=== PATIENT | female | born 1995 | race Two or more races ===

== ENCOUNTER 2018-01-15 13:34 | Inpatient (IN) | payer OTHER ==
[2018-01-15] MEDS ORDERED: SODIUM CHLORIDE 1,000 ML IV STA ×2 (14:48→16:14)
[2018-01-15] MEDS ORDERED: ONDANSETRON 4 MG/2 ML VIAL ONE (15:16)
[2018-01-15] MEDS: ONDANSETRON 4 MG/2 ML VIAL IVPUSH ONE ×2 (15:19→15:28)
[2018-01-15] MEDS ORDERED: KETOROLAC TROMETHAMINE 30 MG/1 ML VIAL IVPUSH ONE ×2 (15:26→20:50)
[2018-01-15] MEDS ORDERED: KETOROLAC TROMETHAMINE 30 MG/1 ML VIAL ONE ×2 (15:29→21:11)
[2018-01-15 15:30] LABS: BASO % 0.4 % (0-2.0); EOS % 0.1 % (0-4.5); HEMATOCRIT 38.9 % (32.4-45.2); HEMOGLOBIN 13.5 GM/dL (10.7-15.3); LYMPH % 10.8 % (8-40); MCH 34.7 pg (25.7-33.7); MCHC 34.7 g/dl (32.0-36.0); MEAN PLT VOLUME 9.3 fl (7.5-11.1); MONO % 5.1 % (3.8-10.2); NEUT % 83.6 % (42.8-82.8); PLATELET COUNT 205 K/MM3 (134-434); RBC 3.89 M/mm3 (3.60-5.2); RDW 12.3 % (11.6-15.6); WHITE BLOOD COUNT 21.6 K/mm3 (4.0-10.0)
--- NOTE | 2018-01-15 15:34 | PDOC ---
History of Present Illness - General Chief Complaint: Pain, Acute Stated Complaint: SENT BY PCP Time Seen by Provider: 01/15/18 14:47 History Source: Patient Exam Limitations: No Limitations - History of Present Illness Travel History: No Initial Comments: 01/15/18 15:29 22-year-old female with no past medical history presents to ED for evaluation of sudden onset of right upper quadrant and right periumbilical pain associated with nausea and vomiting which continued today. Patient denies fever, chills recent travel, recent illness, GI history irregular menses, urinary complaints, or recent constipation. Timing/Duration: reports: getting worse Quality: reports: moderate, cramping Abdominal Pain Onset Location: reports: RUQ, periumbilical (right) Pain Radiation: denies: no radiation Activities at Onset: denies: none Aggravating Factors: worse with: None Alleviating Factors: worse with: None Past History - Past Medical History Allergies/Adverse Reactions: Allergies Allergy/AdvReac Type Severity Reaction Status Date / Time No Known Allergies Allergy Verified 01/15/18 13:59 Home Medications: Ambulatory Orders NK [No Known Home Medication] 01/15/18 Asthma: Yes Cardiac Disorders: Yes (MURMUR) COPD: No - Suicide/Smoking/Psychosocial Hx Smoking History: Never smoked Patient Lives Alone: No Lives with/in: parents Review of Systems - Review of Systems Able to Perform ROS?: No Constitutional: No: Symptoms Reported HEENTM: No: Symptoms Reported Respiratory: No: Symptoms reported Cardiac (ROS): No: Symptoms Reported ABD/GI: Yes: Nausea, Vomiting, Abdominal cramping : No: Symptoms Reported Musculoskeletal: No: Symptoms Reported Integumentary: No: Symptoms Reported Neurological: No: Symptoms reported *Physical Exam - Vital Signs Last Vital Signs Temp Pulse Resp BP Pulse Ox 99.1 F 101 H 17 102/54 100 01/15/18 13:59 01/15/18 13:59 01/15/18 13:59 01/15/18 13:59 01/15/18 13:59 - Physical Exam General Appearance: Yes: Nourished, Appropriately Dressed. No: Apparent Distress HEENT: positive: Pharynx Normal. negative: Pale Conjunctivae Neck: positive: Supple Respiratory/Chest: positive: Lungs Clear, Normal Breath Sounds. negative: Respiratory Distress, Accessory Muscle Use Cardiovascular: positive: Regular Rhythm, Tachycardia. negative: Murmur Gastrointestinal/Abdominal: positive: Soft, Tenderness (right upper quadrant, Right periumbilical and mild right lower quadrant. + right flank tenderness. Mild rebound. No distention) Musculoskeletal: negative: CVA Tenderness Integumentary: positive: Normal Color, Warm, Moist Neurologic: positive: Motor Strength /5 (ambulatory) ED Treatment Course - LABORATORY CBC & Chemistry Diagram: 01/15/18 15:20 01/15/18 15:20 - Medications Given in the ED: ED Medications Discontinued Medications Generic Name Dose Route Start Last Admin Trade Name Yoq PRN Reason Stop Dose Admin Ondansetron HCl 4 mg 01/15/18 14:48 01/15/18 15:28 Zofran Injection IVPUSH 01/15/18 14:49 Not Given ONCE ONE Medical Decision Making - Medical Decision Making 01/15/18 15:05 Pt with sudden onset of right upper abdominal and right periumbilical pain last night which progressed to nausea and vomiting since this a.m. Patient referred to urgent care clinic for evaluation. Facial exam had right upper quadrant and right periumbilical mild right lower quadrant pain. Patient also with a temperature of 99.1 along with a heart rate of 101. Patient ordered for labs, antiemetics, IV fluids and analgesics. Patient may require CT versus ultrasound and will wait for further lab results. 01/15/18 16:18 Laboratory Tests 01/15/18 01/15/18 01/15/18 15:20 15:20 15:20 WBC 21.6 H Hgb 13.5 Hct 38.9 MCV 100.0 H MCH 34.7 H Plt Count 205 Neutrophils % 83.6 H Neutrophils % (Manual) Pending Sodium 137 Potassium 4.2 Chloride 102 Carbon Dioxide 27 Anion Gap 8 BUN 13 Creatinine 0.9 Random Glucose 101 Calcium 9.2 Magnesium 2.0 AST 19 ALT 24 Urine Protein 2+ H Urine Blood 1+ H Urine Nitrite Negative Ur Leukocyte Esterase 2+ H Urine WBC (Auto) Pending Urine RBC (Auto) Pending Urine HCG, Qual Negative Blood cultures, lactic acid, second IV along with IV fluids and abdominal CT. Coags and type and screen were also added. 01/15/18 17:13 Laboratory Tests 01/15/18 15:20 Urine WBC (Auto) 26 Urine RBC (Auto) 5 01/15/18 17:44 Laboratory Tests 01/15/18 01/15/18 15:20 16:50 Lactic Acid 1.3 Ur Leukocyte Esterase 2+ H Urine WBC (Auto) 26 Urine RBC (Auto) 5 Case discussed with radiologist Dr. Perez and feels this is not appendicitis and noted a large cystic structure in the right adnexa. Patient also with UTI. Patient be given a dose of ceftriaxone and reassess. 01/15/18 18:50 Selected Entries 01/15/18 17:49 Temperature 99.9 F H Pulse Rate [ 93 H Left] Respiratory 18 Rate Blood Pressure 114/75 [Right Arm] O2 Sat by Pulse 100 Oximetry (%)
[2018-01-15 15:41] LABS: URINE APPEARANCE CLEAR; URINE BILIRUBIN NEGATIVE (<2.0 mg/dL); URINE COLOR LTYELLOW; URINE GLUCOSE (UA) NEGATIVE (NEGATIVE); URINE KETONE NEGATIVE (NEGATIVE); URINE NITRITE NEGATIVE (NEGATIVE); URINE UROBILINOGEN NEGATIVE mg/dL (0.2-1.0)
[2018-01-15 15:42] LABS: URINE LEUK ESTERASE 2+ (NEGATIVE); URINE PROTEIN 2+ (NEGATIVE)
[2018-01-15 15:48] LABS: HCG,QUALITATIVE URINE NEGATIVE
[2018-01-15 15:49] LABS: ALBUMIN 4.1 g/dl (3.4-5.0); ALK PHOS 48 U/L (45-117); ANION GAP 8 (8-16); BILIRUBIN,TOTAL 0.8 mg/dL (0.2-1.0); BLOOD UREA NITROGEN 13 mg/dL (7-18); CALCIUM 9.2 mg/dL (8.5-10.1); CHLORIDE 102 mmol/L (98-107); CO2 27 mmol/L (21-32); CREATININE 0.9 mg/dL (0.55-1.02); GLUCOSE,RANDOM 101 mg/dL (74-106); LIPASE 111 U/L (73-393); POTASSIUM 4.2 mmol/L (3.5-5.1); SGPT/ALT 24 U/L (12-78); SODIUM 137 mmol/L (136-145)
[2018-01-15 15:50] LABS: SGOT/AST 19 U/L (15-37)
[2018-01-15 16:22] LABS: EPI CELLS RARE /HPF (FEW); URINE MUCUS RARE
--- NOTE | 2018-01-15 16:48 | PDOC ---
*Physical Exam - Vital Signs Last Vital Signs Temp Pulse Resp BP Pulse Ox 99.1 F 101 H 17 102/54 100 01/15/18 13:59 01/15/18 13:59 01/15/18 13:59 01/15/18 13:59 01/15/18 13:59 ED Treatment Course - LABORATORY CBC & Chemistry Diagram: 01/15/18 15:20 01/15/18 15:20 - ADDITIONAL ORDERS Additional order review: Laboratory Results 01/15/18 01/15/18 15:20 15:20 Sodium 137 Potassium 4.2 Chloride 102 Carbon Dioxide 27 Anion Gap 8 BUN 13 Creatinine 0.9 Creat Clearance w eGFR > 60 Random Glucose 101 Calcium 9.2 Magnesium 2.0 Total Bilirubin 0.8 AST 19 ALT 24 Alkaline Phosphatase 48 Total Protein 8.0 Albumin 4.1 Lipase 111 Urine Color Ltyellow Urine Appearance Clear Urine pH 8.0 Ur Specific [place] 1.015 Urine Protein 2+ H Urine Glucose (UA) Negative Urine Ketones Negative Urine Blood 1+ H Urine Nitrite Negative Urine Bilirubin Negative Urine Urobilinogen Negative Ur Leukocyte Esterase 2+ H Urine WBC (Auto) 26 Urine RBC (Auto) 5 Ur Epithelial Cells Rare Urine Mucus Rare Urine HCG, Qual Negative 01/15/18 15:20 RBC 3.89 MCV 100.0 H MCHC 34.7 RDW 12.3 MPV 9.3 Neutrophils % 83.6 H Lymphocytes % 10.8 Monocytes % 5.1 Eosinophils % 0.1 Basophils % 0.4 - Medications Given in the ED: ED Medications Discontinued Medications Generic Name Dose Route Start Last Admin Trade Name Freq PRN Reason Stop Dose Admin Sodium Chloride 1,000 mls @ 1,000 mls/hr 01/15/18 14:48 01/15/18 15:18 Normal Saline - IV 01/15/18 15:47 1,000 mls/hr ASDIR STA Administration Ketorolac Tromethamine 30 mg 01/15/18 15:26 01/15/18 15:30 Toradol Injection - IVPUSH 01/15/18 15:27 30 mg ONCE ONE Administration Ondansetron HCl 4 mg 01/15/18 14:48 01/15/18 15:28 Zofran Injection IVPUSH 01/15/18 14:49 Not Given ONCE ONE Medical Decision Making - Medical Decision Making 01/15/18 16:45 Seen with ELIAZAR King: 22y/o F with acute onset epigastric/periumbilical pain with n/v. Tenderness in the upper abdomen, ? biliary v. pancreatitis v. focal infectious process such as appy. labs notable for leukocytosis 21.6 normal LFT and lipase UA with elevated WBC ctap pending, r/o appy *DC/Admit/Observation/Transfer Diagnosis at time of Disposition: Upper abdominal pain - Referrals - Patient Instructions - Post Discharge Activity
[2018-01-15 17:56] LABS: INR 1.37 (0.83-1.09)
[2018-01-15 18:12] LABS: PROTHROMBIN TIME (PATIENT) 15.5 SEC (9.7-13.0)
[2018-01-15 18:25] LABS: MACROCYTOSIS 1+; PLATELET ESTIMATE ADEQUATE
[2018-01-15] MEDS ORDERED: CEFTRIAXONE 1 GM in DEXTROSE 5%-WATER - 50 ML IVPB ONE (18:50)
[2018-01-15] MEDS ORDERED: CEFTRIAXONE 1 GM/50 ML BAG ONE (19:08)
--- NOTE | 2018-01-15 19:17 | PDOC ---
*Physical Exam - Vital Signs Last Vital Signs Temp Pulse Resp BP Pulse Ox 99.9 F H 93 H 18 114/75 100 01/15/18 17:49 01/15/18 17:49 01/15/18 17:49 01/15/18 17:49 01/15/18 17:49 - Physical Exam General Appearance: Yes: Appropriately Dressed Female Pelvic Exam: positive: normal external exam, CMT (right + CMT), discharge (yellow discharge) ED Treatment Course - LABORATORY CBC & Chemistry Diagram: 01/15/18 20:20 01/15/18 15:20 - ADDITIONAL ORDERS Additional order review: Laboratory Results 01/15/18 01/15/18 01/15/18 16:50 16:50 16:50 PT with INR 15.50 H* INR 1.37 Sodium Potassium Chloride Carbon Dioxide Anion Gap BUN Creatinine Creat Clearance w eGFR Random Glucose Lactic Acid 1.3 Calcium Magnesium Total Bilirubin AST ALT Alkaline Phosphatase Total Protein Albumin Lipase Urine Color Urine Appearance Urine pH Ur Specific [place] Urine Protein Urine Glucose (UA) Urine Ketones Urine Blood Urine Nitrite Urine Bilirubin Urine Urobilinogen Ur Leukocyte Esterase Urine WBC (Auto) Urine RBC (Auto) Ur Epithelial Cells Urine Mucus Urine HCG, Qual Blood Type A POSITIVE Antibody Screen Negative 01/15/18 01/15/18 15:20 15:20 PT with INR INR Sodium 137 Potassium 4.2 Chloride 102 Carbon Dioxide 27 Anion Gap 8 BUN 13 Creatinine 0.9 Creat Clearance w eGFR > 60 Random Glucose 101 Lactic Acid Calcium 9.2 Magnesium 2.0 Total Bilirubin 0.8 AST 19 ALT 24 Alkaline Phosphatase 48 Total Protein 8.0 Albumin 4.1 Lipase 111 Urine Color Ltyellow Urine Appearance Clear Urine pH 8.0 Ur Specific [place] 1.015 Urine Protein 2+ H Urine Glucose (UA) Negative Urine Ketones Negative Urine Blood 1+ H Urine Nitrite Negative Urine Bilirubin Negative Urine Urobilinogen Negative Ur Leukocyte Esterase 2+ H Urine WBC (Auto) 26 Urine RBC (Auto) 5 Ur Epithelial Cells Rare Urine Mucus Rare Urine HCG, Qual Negative Blood Type Antibody Screen 01/15/18 15:20 RBC 3.89 MCV 100.0 H MCHC 34.7 RDW 12.3 MPV 9.3 Neutrophils % 83.6 H Lymphocytes % 10.8 Monocytes % 5.1 Eosinophils % 0.1 Basophils % 0.4 - Medications Given in the ED: ED Medications Discontinued Medications Generic Name Dose Route Start Last Admin Trade Name Quintin PRN Reason Stop Dose Admin Sodium Chloride 1,000 mls @ 1,000 mls/hr 01/15/18 14:48 01/15/18 15:18 Normal Saline - IV 01/15/18 15:47 1,000 mls/hr ASDIR STA Administration Sodium Chloride 1,000 mls @ 1,000 mls/hr 01/15/18 16:14 01/15/18 17:18 Normal Saline - IV 01/15/18 17:13 1,000 mls/hr ASDIR STA Administration Ketorolac Tromethamine 30 mg 01/15/18 15:26 01/15/18 15:30 Toradol Injection - IVPUSH 01/15/18 15:27 30 mg ONCE ONE Administration Ondansetron HCl 4 mg 01/15/18 14:48 01/15/18 15:28 Zofran Injection IVPUSH 01/15/18 14:49 Not Given ONCE ONE Medical Decision Making - Medical Decision Making 01/15/18 21:53 GC chlamydia endocervical specimen sent. Spoke to Dr. Colin patient to be admitted for PID considering leukocytosis, pelvic pain and right TOA on ultrasound. patient to be admitted under hospitalist service. patient PCP and [facility] COORDINATOR are in [place]. *DC/Admit/Observation/Transfer Diagnosis at time of Disposition: Tubo-ovarian abscess, PID (acute pelvic inflammatory disease) - Discharge Dispostion Decision to Admit order: Yes - Referrals - Patient Instructions - Post Discharge Activity
[2018-01-15 20:44] LABS: BASO % 0.1 % (0-2.0); EOS % 0.1 % (0-4.5); HEMATOCRIT 35.5 % (32.4-45.2); HEMOGLOBIN 12.1 GM/dL (10.7-15.3); MCH 34.2 pg (25.7-33.7); MEAN CELL VOLUME 100.6 fl (80-96); MEAN PLT VOLUME 8.9 fl (7.5-11.1); MONO % 5.7 % (3.8-10.2); NEUT % 85.1 % (42.8-82.8); PLATELET COUNT 182 K/MM3 (134-434); RBC 3.53 M/mm3 (3.60-5.2); RDW 12.3 % (11.6-15.6); WHITE BLOOD COUNT 19.7 K/mm3 (4.0-10.0)
[2018-01-15] MEDS ORDERED: ceFAZolin 2 GRAM PREMIX BAG IVPB ONE (21:15)
[2018-01-15] MEDS ORDERED: CEFAZOLIN 2 GM/D5W 2 GM/50 ML ML IVPB ONE (21:15)
--- NOTE | 2018-01-15 23:27 | PN ---
Teaching Attending Note Name of Resident: Corona Salas ATTENDING PHYSICIAN STATEMENT I saw and evaluated the patient. I reviewed the resident's note and discussed the case with the resident. I agree with the resident's findings and plan as documented. SUBJECTIVE: Patient is a 22 year old woman with no past medical history presents to ER for evaluation of sudden onset of right upper quadrant and right periumbilical pain associated with nausea and vomiting which continued today. She has had RLQ abdominal pain several times in the past and was told that she has a complex ovarian cyst. Sexually active with one partner and has a 3 year old child. She has a history of asthma in childhood, genital herpes, and her LMP was December 28 2017. Patient denies fever, chills recent travel, recent illness, irregular menses, urinary complaints, or recent constipation. OBJECTIVE: Alert and in no distress Vital Signs Period Temp Pulse Resp BP Sys/[place] Pulse Ox Last 24 Hr 99.1 F-99.9 F 93-101 17-18 102-114/54-75 100-100 HEENT: No Jaundice, eye redness or discharge, PERRLA, EOMI. Normocephalic, atraumatic. External ears are normal and hearing is grossly intact. No nasal discharge. Neck: Supple, nontender. No palpable adenopathy or thyromegaly. No JVD Chest: Good effort. Clear to auscultation and percussion. Heart: Regular. No S3, rub or murmur Abdomen: Not distended, soft, RLQ and periumblical tenderness; no HSM. No rebound or guarding. Normoactive bowel sounds. Ext: Peripheral pulses intact. No leg edema. Skin: Warm and dry. No petechiae, rash or ecchymosis. Neuro: Alert. Oriented x3. CN 2-12 grossly intact. Sensation grossly intact in all four extremities and DTR are symmetric. Home Medications Medication Instructions Recorded NK [No Known Home Medication] 01/15/18 Abnormal Lab Results 01/15/18 01/15/18 01/15/18 15:20 15:20 16:50 WBC 21.6 H RBC MCV 100.0 H MCH 34.7 H Neutrophils % 83.6 H Monocytes % (Manual) 3 L PT with INR 15.50 H* Urine Protein 2+ H Urine Blood 1+ H Ur Leukocyte Esterase 2+ H 01/15/18 20:20 WBC 19.7 H RBC 3.53 L MCV 100.6 H MCH 34.2 H Neutrophils % 85.1 H Monocytes % (Manual) PT with INR Urine Protein Urine Blood Ur Leukocyte Esterase ASSESSMENT AND PLAN: 1. PID/TOA - CT scan as well as transvaginal ultrasound showed right hydrosalphinx and she has pyuria as well as leukocytosis. Will treat as pelvic inflammatory disease with Cefoxitin 2 gm IV q 6 hours and Doxycycline 100 mg po q 12 hours. Results of urine culture and tests for chlamydia, Neisseria gonorrhoea and trichomonas are pending. Consult [employer]ILY [employer]ERVATION CASEWORKER and ID. 2. DVT prophylaxis - Heparin 5000u sq tid. 3. Advance directives - Full code
[2018-01-15] MEDS ORDERED: ONDANSETRON 4 MG/2 ML VIAL IVPUSH PRN (23:55)
[2018-01-15] MEDS ORDERED: KETOROLAC TROMETHAMINE 30 MG/1 ML VIAL IVPUSH PRN (23:59)
--- NOTE | 2018-01-16 02:23 | HP ---
CHIEF COMPLAINT: abdominal pain PCP: HISTORY OF PRESENT ILLNESS: 22 yo female with no significant PMH presented to the ED with one day of Abdominal pain in the RUQ and Right periumbilical region. During this time she endorses chills, nausea, and 3 episodes of nonbloody, nonbilious vomiting. She states that she went to urgent care who recommended she come to the ED for possible cholecystitis. Since then, the pain has migrated to RLQ and suprapubic regions. She states that she is sexually active with one partner and that they use barrier protection consistently. She denies headache, chest pain, SOB, dysuria, hematuria, abnormal vaginal discharge. ER course was notable for: (1) CT and U/S revealing 4.4 x 4 x 4 fluid filled convoluted tubular structure consistent with hydrosalpinx vs. hydropyosalpinx (2) WBC: 19.7, afebrile (3) Ancef, Flagyl given for presumed PID Recent Travel: none PAST MEDICAL HISTORY: Childhood asthma - has not required inhaler in many years PAST SURGICAL HISTORY: 4 years ago - blood loss required transfusion Social History: Smoking: none Alcohol: none Drugs: none Sexual: as above Family History: Allergies No Known Allergies Allergy (Verified 01/15/18 13:59) HOME MEDICATIONS: Home Medications Medication Instructions Recorded NK [No Known Home Medication] 01/15/18 REVIEW OF SYSTEMS CONSTITUTIONAL: chills, Absent: fever, diaphoresis, generalized weakness, malaise, loss of appetite, weight change HEENT: Absent: rhinorrhea, nasal congestion, throat pain, throat swelling, difficulty swallowing, mouth swelling, ear pain, eye pain, visual changes CARDIOVASCULAR: Absent: chest pain, syncope, palpitations, irregular heart rate, lightheadedness , peripheral edema RESPIRATORY: Absent: cough, shortness of breath, dyspnea with exertion, orthopnea, wheezing, stridor, hemoptysis GASTROINTESTINAL: abdominal pain, nausea, vomiting Absent: , abdominal distension, diarrhea, constipation, melena, hematochezia GENITOURINARY: frequency, Absent: dysuria, urgency, hesitancy, hematuria, flank pain, genital pain MUSCULOSKELETAL: Absent: myalgia, arthralgia, joint swelling, back pain, neck pain SKIN: Absent: rash, itching, pallor HEMATOLOGIC/IMMUNOLOGIC: Absent: easy bleeding, easy bruising, lymphadenopathy, frequent infections ENDOCRINE: Absent: unexplained weight gain, unexplained weight loss, heat intolerance, cold intolerance NEUROLOGIC: Absent: headache, focal weakness or paresthesias, dizziness, unsteady gait, seizure, mental status changes, bladder or bowel incontinence PSYCHIATRIC: Absent: anxiety, depression, suicidal or homicidal ideation, hallucinations. PHYSICAL EXAMINATION Vital Signs - 24 hr 01/15/18 01/15/18 01/16/18 13:59 17:49 01:37 Temperature 99.1 F 99.9 F H 98.8 F Pulse Rate 101 H Pulse Rate [ 93 H 119 H Left] Respiratory 17 18 17 Rate Blood Pressure 102/54 Blood Pressure 114/75 106/59 [Right Arm] O2 Sat by Pulse 100 100 99 Oximetry (%) GENERAL: Awake, alert, and fully oriented, in no acute distress. HEAD: Normal with no signs of trauma. EYES: PERRL, EOMI, scera anicteric EARS, NOSE, THROAT: oropharynx clear without exudates. Moist mucous membranes. NECK: supple without lymphadenopathy, JVD, or masses. LUNGS: CTA b/l, no rhonchi or wheezes HEART: RRR no murmurs ABDOMEN: normoactive bowel sounds, tenderness to palpation worst in RLQ and suprapubic region UPPER EXTREMITIES: warm, well-perfused. No cyanosis. No clubbing. No peripheral edema. LOWER EXTREMITIES: warm, well-perfused. No calf tenderness. No peripheral edema. NEUROLOGICAL: Cranial nerves II-XII grossly intact. Normal speech. PSYCHIATRIC: Cooperative. Good eye contact. Appropriate mood and affect. SKIN: Warm, dry, normal turgor, no rashes or lesions noted Laboratory Results - last 24 hr 01/15/18 01/15/18 01/15/18 15:20 15:20 15:20 WBC 21.6 H RBC 3.89 Hgb 13.5 Hct 38.9 MCV 100.0 H MCH 34.7 H MCHC 34.7 RDW 12.3 Plt Count 205 MPV 9.3 Absolute Neuts (auto) 18.1 Total Counted 100 Neutrophils % 83.6 H Neutrophils % (Manual) 79.0 Band Neutrophils % 9.0 Lymphocytes % 10.8 Lymphocytes % (Manual) 9.0 Monocytes % 5.1 Monocytes % (Manual) 3 L Eosinophils % 0.1 Basophils % 0.4 Nucleated RBC % 0 Differential Comment Man diff performed Platelet Estimate Adequate Platelet Comment Polychromasia 1+ Macrocytosis 1+ PT with INR INR Sodium 137 Potassium 4.2 Chloride 102 Carbon Dioxide 27 Anion Gap 8 BUN 13 Creatinine 0.9 Creat Clearance w eGFR > 60 Random Glucose 101 Lactic Acid Calcium 9.2 Magnesium 2.0 Total Bilirubin 0.8 AST 19 ALT 24 Alkaline Phosphatase 48 Total Protein 8.0 Albumin 4.1 Lipase 111 Urine Color Ltyellow Urine Appearance Clear Urine pH 8.0 Ur Specific [place] 1.015 Urine Protein 2+ H Urine Glucose (UA) Negative Urine Ketones Negative Urine Blood 1+ H Urine Nitrite Negative Urine Bilirubin Negative Urine Urobilinogen Negative Ur Leukocyte Esterase 2+ H Urine WBC (Auto) 26 Urine RBC (Auto) 5 Ur Epithelial Cells Rare Urine Mucus Rare Urine HCG, Qual Negative Blood Type Antibody Screen 01/15/18 01/15/18 01/15/18 16:50 16:50 16:50 WBC RBC Hgb Hct MCV MCH MCHC RDW Plt Count MPV Absolute Neuts (auto) Total Counted Neutrophils % Neutrophils % (Manual) Band Neutrophils % Lymphocytes % Lymphocytes % (Manual) Monocytes % Monocytes % (Manual) Eosinophils % Basophils % Nucleated RBC % Differential Comment Platelet Estimate Platelet Comment Polychromasia Macrocytosis PT with INR 15.50 H* INR 1.37 Sodium Potassium Chloride Carbon Dioxide Anion Gap BUN Creatinine Creat Clearance w eGFR Random Glucose Lactic Acid 1.3 Calcium Magnesium Total Bilirubin AST ALT Alkaline Phosphatase Total Protein Albumin Lipase Urine Color Urine Appearance Urine pH Ur Specific [place] Urine Protein Urine Glucose (UA) Urine Ketones Urine Blood Urine Nitrite Urine Bilirubin Urine Urobilinogen Ur Leukocyte Esterase Urine WBC (Auto) Urine RBC (Auto) Ur Epithelial Cells Urine Mucus Urine HCG, Qual Blood Type A POSITIVE Antibody Screen Negative 01/15/18 20:20 WBC 19.7 H RBC 3.53 L Hgb 12.1 Hct 35.5 MCV 100.6 H MCH 34.2 H MCHC 34.0 RDW 12.3 Plt Count 182 MPV 8.9 Absolute Neuts (auto) 16.8 Total Counted Neutrophils % 85.1 H Neutrophils % (Manual) Band Neutrophils % Lymphocytes % 9.0 Lymphocytes % (Manual) Monocytes % 5.7 Monocytes % (Manual) Eosinophils % 0.1 Basophils % 0.1 Nucleated RBC % 0 Differential Comment Platelet Estimate Platelet Comment Polychromasia Macrocytosis PT with INR INR Sodium Potassium Chloride Carbon Dioxide Anion Gap BUN Creatinine Creat Clearance w eGFR Random Glucose Lactic Acid Calcium Magnesium Total Bilirubin AST ALT Alkaline Phosphatase Total Protein Albumin Lipase Urine Color Urine Appearance Urine pH Ur Specific [place] Urine Protein Urine Glucose (UA) Urine Ketones Urine Blood Urine Nitrite Urine Bilirubin Urine Urobilinogen Ur Leukocyte Esterase Urine WBC (Auto) Urine RBC (Auto) Ur Epithelial Cells Urine Mucus Urine HCG, Qual Blood Type Antibody Screen ASSESSMENT/PLAN: 22 yo female with no significant PMH admitted for treatment of acute vs. chronic pelvic inflammatory dz, more likely acute PID -more likely acute PID -WBC 19.7, afebrile -CT and U/S fluid filled convoluted tubular structure in R adnexa -G/C swab collected -Urine and Blood c/s -ID consult ordered -PIG STICKER consult ordered -Cefoxitin 2 gm IV Q6 -Doxy 100 mg PO Q12 DVT Prophylaxis -SCD's FEN -Fluids: none -Electrolytes: as above, repeat BMP, Mg, Phos -Nutrition: Regular diet Disposition admit to med/surg Visit type - Emergency Visit Emergency Visit: Yes ED Registration Date: 01/15/18 Care time: The patient presented to the Emergency Department on the above date and was hospitalized for further evaluation of their emergent condition. - New Patient This patient is new to me today: Yes Date on this admission: 01/16/18 - Critical Care Critical Care patient: No Hospitalist Screening - Colonoscopy Questionnaire Colonoscopy Questionnaire: Colonoscopy Questionnaire - Patient: 50 - 75 years old and never had a screening colonoscopy: No History of colon or rectal polyps, or CA: No History of IBD, Crohn's disease or UC: No History of abdominal radiation therapy as a child: No - Relative: 1 with colon or rectal CA, or polyps at age 60 or younger: No Colon or rectal CA diagnosed at age 45 or younger: No Multiple relatives with colon or rectal CA: No - Outcome: Screening Result: Negative Screen
[2018-01-16] MEDS: CEFOXITIN SODIUM 2 GM in DEXTROSE 5%-WATER - 100 ML IVPB SCH ×4 (03:14→21:25)
[2018-01-16 03:28] VITALS: BMI 23.1
[2018-01-16] MEDS ORDERED: PT OWN MED DRAWER 7, Y5N ONE ×3 (03:42→21:11)
[2018-01-16] MEDS: ACETAMINOPHEN 325 MG TABLET (FP) PO PRN (05:45)
[2018-01-16] MEDS ORDERED: HEPARIN NA (PORCINE) 5,000 UNITS/ML 1ML VIAL SQ SCH (06:00)
[2018-01-16 06:37] LABS: HEMATOCRIT 31.4 % (32.4-45.2); MCH 35.4 pg (25.7-33.7); MEAN CELL VOLUME 101.3 fl (80-96); PLATELET COUNT 152 K/MM3 (134-434); RDW 12.3 % (11.6-15.6); WHITE BLOOD COUNT 17.3 K/mm3 (4.0-10.0)
[2018-01-16 07:15] LABS: ANION GAP 5 (8-16); BLOOD UREA NITROGEN 7 mg/dL (7-18); CALCIUM 7.8 mg/dL (8.5-10.1); CHLORIDE 107 mmol/L (98-107); CO2 25 mmol/L (21-32); CREATININE 0.9 mg/dL (0.55-1.02); GLUCOSE,RANDOM 104 mg/dL (74-106); MAGNESIUM 1.6 mg/dL (1.8-2.4); PHOSPHOROUS 1.8 mg/dL (2.5-4.9); POTASSIUM 3.8 mmol/L (3.5-5.1); SODIUM 137 mmol/L (136-145)
--- NOTE | 2018-01-16 09:36 | PN ---
Physical Exam: SUBJECTIVE: Patient seen and examined at the bedside. Reports mild discomfort of her RUQ. OBJECTIVE: electrolyte imbalance Vital Signs Period Temp Pulse Resp BP Sys/Chavarria Pulse Ox Last 24 Hr 98.5 F-102.9 F 93-119 16-18 102-118/54-75 99-100 Neuro: awake, alert and oriented x 3 Abdomen: Not distended, soft, RLQ and periumblical tenderness persists. No rebound, +bowel sounds. Upper ext: no edema equal strength Lower ext: no edema, equal strength Laboratory Results - last 24 hr 01/15/18 01/15/18 01/15/18 15:20 15:20 15:20 WBC 21.6 H RBC 3.89 Hgb 13.5 Hct 38.9 MCV 100.0 H MCH 34.7 H MCHC 34.7 RDW 12.3 Plt Count 205 MPV 9.3 Absolute Neuts (auto) 18.1 Total Counted 100 Neutrophils % 83.6 H Neutrophils % (Manual) 79.0 Band Neutrophils % 9.0 Lymphocytes % 10.8 Lymphocytes % (Manual) 9.0 Monocytes % 5.1 Monocytes % (Manual) 3 L Eosinophils % 0.1 Basophils % 0.4 Nucleated RBC % 0 Differential Comment Man diff performed Platelet Estimate Adequate Platelet Comment Polychromasia 1+ Macrocytosis 1+ PT with INR INR Sodium 137 Potassium 4.2 Chloride 102 Carbon Dioxide 27 Anion Gap 8 BUN 13 Creatinine 0.9 Creat Clearance w eGFR > 60 Random Glucose 101 Lactic Acid Calcium 9.2 Phosphorus Magnesium 2.0 Total Bilirubin 0.8 AST 19 ALT 24 Alkaline Phosphatase 48 Total Protein 8.0 Albumin 4.1 Lipase 111 Urine Color Ltyellow Urine Appearance Clear Urine pH 8.0 Ur Specific [place] 1.015 Urine Protein 2+ H Urine Glucose (UA) Negative Urine Ketones Negative Urine Blood 1+ H Urine Nitrite Negative Urine Bilirubin Negative Urine Urobilinogen Negative Ur Leukocyte Esterase 2+ H Urine WBC (Auto) 26 Urine RBC (Auto) 5 Ur Epithelial Cells Rare Urine Mucus Rare Urine HCG, Qual Negative Blood Type Antibody Screen 01/15/18 01/15/18 01/15/18 16:50 16:50 16:50 WBC RBC Hgb Hct MCV MCH MCHC RDW Plt Count MPV Absolute Neuts (auto) Total Counted Neutrophils % Neutrophils % (Manual) Band Neutrophils % Lymphocytes % Lymphocytes % (Manual) Monocytes % Monocytes % (Manual) Eosinophils % Basophils % Nucleated RBC % Differential Comment Platelet Estimate Platelet Comment Polychromasia Macrocytosis PT with INR 15.50 H* INR 1.37 Sodium Potassium Chloride Carbon Dioxide Anion Gap BUN Creatinine Creat Clearance w eGFR Random Glucose Lactic Acid 1.3 Calcium Phosphorus Magnesium Total Bilirubin AST ALT Alkaline Phosphatase Total Protein Albumin Lipase Urine Color Urine Appearance Urine pH Ur Specific [place] Urine Protein Urine Glucose (UA) Urine Ketones Urine Blood Urine Nitrite Urine Bilirubin Urine Urobilinogen Ur Leukocyte Esterase Urine WBC (Auto) Urine RBC (Auto) Ur Epithelial Cells Urine Mucus Urine HCG, Qual Blood Type A POSITIVE Antibody Screen Negative 01/15/18 01/16/18 01/16/18 20:20 06:00 06:00 WBC 19.7 H 17.3 H RBC 3.53 L 3.10 L Hgb 12.1 11.0 Hct 35.5 31.4 L MCV 100.6 H 101.3 H MCH 34.2 H 35.4 H MCHC 34.0 35.0 RDW 12.3 12.3 Plt Count 182 152 MPV 8.9 9.0 Absolute Neuts (auto) 16.8 Total Counted Neutrophils % 85.1 H Neutrophils % (Manual) Band Neutrophils % Lymphocytes % 9.0 Lymphocytes % (Manual) Monocytes % 5.7 Monocytes % (Manual) Eosinophils % 0.1 Basophils % 0.1 Nucleated RBC % 0 Differential Comment Platelet Estimate Platelet Comment Polychromasia Macrocytosis PT with INR INR Sodium 137 Potassium 3.8 Chloride 107 Carbon Dioxide 25 Anion Gap 5 L BUN 7 Creatinine 0.9 Creat Clearance w eGFR > 60 Random Glucose 104 Lactic Acid Calcium 7.8 L Phosphorus 1.8 L Magnesium 1.6 L Total Bilirubin AST ALT Alkaline Phosphatase Total Protein Albumin Lipase Urine Color Urine Appearance Urine pH Ur Specific [place] Urine Protein Urine Glucose (UA) Urine Ketones Urine Blood Urine Nitrite Urine Bilirubin Urine Urobilinogen Ur Leukocyte Esterase Urine WBC (Auto) Urine RBC (Auto) Ur Epithelial Cells Urine Mucus Urine HCG, Qual Blood Type Antibody Screen Active Medications Generic Name Dose Route Start Last Admin Trade Name Freq PRN Reason Stop Dose Admin Acetaminophen 325 mg 01/16/18 05:38 01/16/18 05:45 Tylenol - PO 325 mg Q4H PRN Administration FEVER Doxycycline Hyclate 100 mg 01/16/18 10:00 Vibramycin - PO BID@1000,1800 STEVEN Cefoxitin Sodium 2 gm/ 100 mls @ 200 mls/hr 01/16/18 15:00 Dextrose IVPB Q6H-IV STEVEN Protocol Ketorolac Tromethamine 30 mg 01/15/18 23:59 Toradol Injection - IVPUSH 01/21/18 23:58 Q6H PRN PAIN LEVEL 6-10 Ondansetron HCl 4 mg 01/15/18 23:55 Zofran Injection IVPUSH Q6H PRN NAUSEA ASSESSMENT/PLAN: Patient is a 22 year old female with past medical history of childhood asthma, genital herpes and (has 1 child, a 3 yr old daughter). She present to the ED on 01/15/2018 for evaluation of acute onset of right upper quadrant and right periumbilical pain/discomfort with nausea and vomiting. Her last menses began on December 28/2018 and she reports that her menses are normal. A CT scan of the abdomen and pelvis done in the ED shows normal appendix with no signs of appendicitis. An approximately 4.4x4x4 cm convoluted tubular fluid structure seen within the right adnexa that may represent hydrosalpinx versus possible hydrophyosalpinx vs non specific complex cyst. She meets sepsis criteria on admission and antibiotics were initiated. Sepsis: Meets sepsis criteria: leukocytosis, tachycardia, febrile, suspected source of infection but with no evidence of organ dysfunction Present with RUQ pain, CT shows a 4.4x4x4 cm convoluted tubular fluid structure seen within the right adnexa that may reprsent hydrosalpinx versus possible hydrophyosalpinx vs non specific complex cyst. Started on Doxycycline and Cefoxitin. Gonorrhea and Chlamydia panels pending. ID and CASE MANAGEMENT COORDINATOR consulted. Electrolyte Imbalance: Hypomagnesium @ 1.6, repleted with Mag ox 800mg po Hypophos @ 1.8: repleted with phos yvonne BID fen PO intake adequate monitor electrolytes regular diet prophy SCDs ambulation bacid probiotic full code Visit type - Emergency Visit Emergency Visit: Yes ED Registration Date: 01/15/18 Care time: The patient presented to the Emergency Department on the above date and was hospitalized for further evaluation of their emergent condition. - New Patient This patient is new to me today: Yes Date on this admission: 01/16/18 - Critical Care Critical Care patient: No - Discharge Referral Referred to [facility] Med [facility] No
[2018-01-16] MEDS: DOXYCYCLINE HYCLATE 100 MG CAPSULE PO SCH ×2 (10:33→17:48)
--- NOTE | 2018-01-16 12:06 | PN ---
Progress Note (short form) - Note Progress Note: ID consult imp/reccd sexually active 22 year old female with 2 day history of right sided abdominal pain fever/leukocytosis ct scan with probable hydropyosalpinx hiv negative one year ago HSV no other stds no anal intercourse sexually active one partner intermittent condom use no recent antibiotics TOA continue cefoxitin/doxycycline f/u cultures hiv testing- patient agrees chlamydia/gonorrhea NAAT pending d/w gyne Problem List - Problems (1) Tubo-ovarian abscess Code(s): N70.93 - SALPINGITIS AND OOPHORITIS, UNSPECIFIED
--- NOTE | 2018-01-16 13:01 | CONS ---
DATE OF CONSULTATION: DATE OF DICTATION: 01/16/2018 REQUESTED BY: Hospitalist service. This is a 22-year-old female with no significant past medical history. She, on the night of January 14, developed right-sided upper quadrant and periumbilical pain that was very severe. She was unable to sleep. She saw went to the urgent center and was sent to the emergency room for further evaluation. She had vomiting x3 in the ER. She denied headache. She denied vaginal discharge, dysuria, or hematuria. She had a workup in the ER notable for a white count of 19.7. CAT scan and ultrasound showed possible hydro-pyosalpinx and she was admitted. She was started on cefoxitin and doxycycline. I am asked to see her for further evaluation. Past medical history is notable for childhood asthma, surgical history for a section 4 years ago. She has a history of genital HSV. She denies Chlamydia or gonorrhea infections in the past. She has had a normal Pap smear. Family history is unremarkable. She has no known drug allergies. She takes no medications. SOCIAL HISTORY: She lives in the community. She has a 3-year-old child. There is no history of alcohol, tobacco, or cigarette use. She is sexually active, she has 1 partner. There is no anal intercourse, and she intermittently uses condoms. Her last menstrual period was December 28. She currently reports she has had some fevers or chills this morning. T-max was 102.9. She has had a bowel movement. She denies any dysuria. PHYSICAL EXAMINATION: General: She is awake and alert. Vital Signs: T-max is 102.9. Most recent temperature is 101.6 with a heart rate of 106. Blood pressure 107/68. Respiratory rate is 18. HEENT: She is normocephalic. Eyes are anicteric. Neck: Supple. Lungs: Clear to auscultation. Heart: Regular rate and rhythm. Abdomen: Soft. She has some right-sided lower quadrant pain radiating to her right upper quadrant. Extremities: Without edema. White count on admission was 21.6, this morning is 17.3, hemoglobin of 11, platelets are 152, INR is 1.3. BUN 7, creatinine 0.9. LFTs are normal. Urinalysis has 2+ leukocytes. Chlamydia and gonorrhea tests are pending. CAT scan and transvaginal sonogram confirm the right-sided hydrosalpinx versus hydro-pyosalpinx. In summary, this is a 22-year-old woman with probable tubo-ovarian abscess. I would continue the cefoxitin and doxycycline, follow up cultures. HIV testing, which she agrees to. She was tested 1 year ago and was negative at that time. Chlamydia and gonorrhea labs are pending. Case was discussed with Gynecology. All questions were answered and discussed at length with the patient. NURY KOLB M.D. [id number]
[2018-01-16] MEDS ORDERED: MAGNESIUM OXIDE 400 MG TABLET (FP) PO ONE (14:30)
[2018-01-16] MEDS: FOLIC ACID 1 MG TABLET (FP) PO SCH (15:51)
[2018-01-16] MEDS: NAPH,MB-DB/K PH,MBDB POWDER PACKET PO SCH ×2 (15:51→21:25)
[2018-01-16] MEDS: LACTOBACILLUS ACIDOPHILUS 1 TABLET PO SCH (15:51)
[2018-01-17] MEDS ORDERED: PT OWN MED DRAWER 7, Y5N ONE ×4 (02:30→18:55)
[2018-01-17] MEDS: CEFOXITIN SODIUM 2 GM in DEXTROSE 5%-WATER - 100 ML IVPB SCH ×4 (02:46→21:50)
[2018-01-17] MEDS ORDERED: INSULIN (NOVOLOG) ASPART 100 UNITS/ML 10ML VIAL ONE ×2 (06:45→18:54)
[2018-01-17 07:27] LABS: BASO % 0.2 % (0-2.0); EOS % 1.3 % (0-4.5); HEMATOCRIT 31.5 % (32.4-45.2); HEMOGLOBIN 10.9 GM/dL (10.7-15.3); LYMPH % 17.7 % (8-40); MCH 34.9 pg (25.7-33.7); MCHC 34.5 g/dl (32.0-36.0); MEAN CELL VOLUME 101.1 fl (80-96); MEAN PLT VOLUME 8.8 fl (7.5-11.1); MONO % 6.5 % (3.8-10.2); NEUT % 74.3 % (42.8-82.8); PLATELET COUNT 167 K/MM3 (134-434); RBC 3.12 M/mm3 (3.60-5.2); RDW 12.7 % (11.6-15.6)
[2018-01-17 08:29] LABS: ALBUMIN 3.1 g/dl (3.4-5.0); ANION GAP 9 (8-16); BILIRUBIN,TOTAL 0.6 mg/dL (0.2-1.0); BLOOD UREA NITROGEN 9 mg/dL (7-18); CALCIUM 8.1 mg/dL (8.5-10.1); CHLORIDE 108 mmol/L (98-107); CO2 23 mmol/L (21-32); CREATININE 0.8 mg/dL (0.55-1.02); GLUCOSE,RANDOM 84 mg/dL (74-106); MAGNESIUM 2.1 mg/dL (1.8-2.4); POTASSIUM 4.3 mmol/L (3.5-5.1); SGOT/AST 10 U/L (15-37); SGPT/ALT 14 U/L (12-78); SODIUM 140 mmol/L (136-145); TOT PROT 6.3 g/dl (6.4-8.2)
[2018-01-17 08:30] LABS: ALK PHOS 44 U/L (45-117)
[2018-01-17] MEDS: FOLIC ACID 1 MG TABLET (FP) PO SCH (09:28)
[2018-01-17] MEDS: NAPH,MB-DB/K PH,MBDB POWDER PACKET PO SCH ×2 (09:28→21:50)
[2018-01-17] MEDS: DOXYCYCLINE HYCLATE 100 MG CAPSULE PO SCH ×2 (09:28→18:31)
[2018-01-17] MEDS: LACTOBACILLUS ACIDOPHILUS 1 TABLET PO SCH (09:28)
--- NOTE | 2018-01-17 10:03 | CONS ---
DATE OF CONSULTATION: 01/16/2018 REASON FOR CONSULTATION: Pelvic pain and fever. HISTORY OF PRESENT ILLNESS: This patient is a 22-year-old, 1, para 1 who presented to ED complaining of 2 days of abdominal pain, which started in periumbilical and then localized to the pelvic area and then radiated to the right upper quadrant area with chills and nausea and had one episode of vomiting. Patient, in the ER, was febrile and had a CT scan, which showed 4.4 x 4 cm fluid-filled tubal structure, which was consistent with hydrosalpinx versus pyosalpinx. White count on admission was 19.7. PAST MEDICAL HISTORY: Significant for section 4 years ago, which she required a blood transfusion. No prior history of sexually transmitted infection. No history of PID. This patient is sexually active, monogamous relationship, and non-spoken. No history of HIV or drug abuse. PHYSICAL EXAMINATION: General: Patient was seen at the bedside. Abdomen: Soft, no distention. Bilateral lower abdominal tenderness and guarding. No rebound. Pelvic: Examination was deferred at this time because the patient was uncomfortable and pelvic examination was done at the ER, which was consistent with PID. IMPRESSION: Tuboovarian abscess, pelvic inflammatory disease. PLAN: Patient is presently on IV antibiotics. I advised IV antibiotics for 72 hours and reevaluate. If the fever continues or the white count does not reduce, and the patient is symptomatic, possible transcutaneous abscess drainage was advised. I will follow up the patient with you. Thank you for the consultation. / DD: DT:
[2018-01-17 11:38] LABS: URINE APPEARANCE CLEAR; URINE BILIRUBIN NEGATIVE (<2.0 mg/dL); URINE COLOR STRAW; URINE GLUCOSE (UA) NEGATIVE (NEGATIVE); URINE KETONE NEGATIVE (NEGATIVE); URINE LEUK ESTERASE NEGATIVE (NEGATIVE); URINE NITRITE NEGATIVE (NEGATIVE); URINE PROTEIN NEGATIVE (NEGATIVE); URINE UROBILINOGEN NEGATIVE mg/dL (0.2-1.0)
[2018-01-17 12:14] LABS: EPI CELLS RARE /HPF (FEW)
--- NOTE | 2018-01-17 12:14 | PN ---
Physical Exam: SUBJECTIVE: Patient seen and examined OBJECTIVE: Reports mild discomfort of her RUQ. Vital Signs Period Temp Pulse Resp BP Sys/Chavarria Pulse Ox Last 24 Hr 98.7 F-100.8 F 95-110 -18 101-119/57-72 99 Neuro: awake, alert and oriented x 3 Abdomen: Not distended, soft, RLQ and periumblical tenderness persists. No rebound, +bowel sounds. Upper ext: no edema equal strength Lower ext: no edema, equal strength Laboratory Results - last 24 hr 01/17/18 01/17/18 01/17/18 06:00 06:00 06:00 WBC 13.0 H RBC 3.12 L Hgb 10.9 Hct 31.5 L MCV 101.1 H MCH 34.9 H MCHC 34.5 RDW 12.7 Plt Count 167 MPV 8.8 Absolute Neuts (auto) 9.7 Neutrophils % 74.3 Lymphocytes % 17.7 D Monocytes % 6.5 Eosinophils % 1.3 D Basophils % 0.2 Nucleated RBC % 0 Sodium 140 Potassium 4.3 Chloride 108 H Carbon Dioxide 23 Anion Gap 9 BUN 9 Creatinine 0.8 Creat Clearance w eGFR > 60 Random Glucose 84 Calcium 8.1 L Magnesium 2.1 Total Bilirubin 0.6 AST 10 L ALT 14 Alkaline Phosphatase 44 L Total Protein 6.3 L Albumin 3.1 L Urine Color Urine Appearance Urine pH Ur Specific [place] Urine Protein Urine Glucose (UA) Urine Ketones Urine Blood Urine Nitrite Urine Bilirubin Urine Urobilinogen Ur Leukocyte Esterase Urine WBC (Auto) Urine RBC (Auto) Ur Epithelial Cells HIV 1&2 Antibody Screen Negative HIV P24 Antigen Negative 01/17/18 11:00 WBC RBC Hgb Hct MCV MCH MCHC RDW Plt Count MPV Absolute Neuts (auto) Neutrophils % Lymphocytes % Monocytes % Eosinophils % Basophils % Nucleated RBC % Sodium Potassium Chloride Carbon Dioxide Anion Gap BUN Creatinine Creat Clearance w eGFR Random Glucose Calcium Magnesium Total Bilirubin AST ALT Alkaline Phosphatase Total Protein Albumin Urine Color Straw Urine Appearance Clear Urine pH 7.0 Ur Specific [place] 1.012 Urine Protein Negative Urine Glucose (UA) Negative Urine Ketones Negative Urine Blood 1+ H Urine Nitrite Negative Urine Bilirubin Negative Urine Urobilinogen Negative Ur Leukocyte Esterase Negative Urine WBC (Auto) <1 Urine RBC (Auto) 1 Ur Epithelial Cells Rare HIV 1&2 Antibody Screen HIV P24 Antigen Active Medications Generic Name Dose Route Start Last Admin Trade Name Freq PRN Reason Stop Dose Admin Acetaminophen 325 mg 01/16/18 05:38 01/16/18 05:45 Tylenol - PO 325 mg Q4H PRN Administration FEVER Doxycycline Hyclate 100 mg 01/16/18 10:00 01/17/18 09:28 Vibramycin - PO 100 mg BID@1000,1800 STEVEN Administration Folic Acid 1 mg 01/16/18 14:30 01/17/18 09:28 Folic Acid - PO 1 mg DAILY STEVEN Administration Cefoxitin Sodium 2 gm/ 100 mls @ 200 mls/hr 01/16/18 15:00 01/17/18 08:27 Dextrose IVPB 200 mls/hr Q6H-IV STEVEN Administration Protocol Ketorolac Tromethamine 30 mg 01/15/18 23:59 Toradol Injection - IVPUSH 01/21/18 23:58 Q6H PRN PAIN LEVEL 6-10 Lactobacillus Acidophilus 1 tab 01/16/18 14:30 01/17/18 09:28 Bacid - PO 1 tab DAILY STEVEN Administration Ondansetron HCl 4 mg 01/15/18 23:55 Zofran Injection IVPUSH Q6H PRN NAUSEA Potassium Phos/Sodium Phos 1 packet 01/16/18 14:30 01/17/18 09:28 Phos-Nak Packet - PO 1 packet BID STEVEN Administration ASSESSMENT/PLAN: Patient is a 22 year old female with past medical history of childhood asthma, genital herpes and (has 1 child, a 3 yr old daughter). She present to the ED on 01/15/2018 for evaluation of acute onset of right upper quadrant and right periumbilical pain/discomfort with nausea and vomiting. Her last menses began on December 28/2018 and she reports that her menses are normal. A CT scan of the abdomen and pelvis done in the ED shows normal appendix with no signs of appendicitis. An approximately 4.4x4x4 cm convoluted tubular fluid structure seen within the right adnexa that may represent hydrosalpinx versus possible hydrophyosalpinx vs non specific complex cyst. She meets sepsis criteria on admission and antibiotics were initiated. Sepsis: sepsis, resolving Present with RUQ pain, CT shows a 4.4x4x4 cm convoluted tubular fluid structure seen within the right adnexa that may reprsent hydrosalpinx versus possible hydrophyosalpinx vs non specific complex cyst. Started on Doxycycline and Cefoxitin. Gonorrhea and Chlamydia panels pending. ID and BRINE WELL OPERATOR consulted. Electrolyte Imbalance: Hypomagnesium, resolved Hypophos: repleted with phos yvonne BID fen PO intake adequate monitor electrolytes regular diet prophy SCDs ambulation bacid probiotic full code Visit type - Emergency Visit Emergency Visit: Yes ED Registration Date: 01/15/18 Care time: The patient presented to the Emergency Department on the above date and was hospitalized for further evaluation of their emergent condition. - New Patient This patient is new to me today: No - Critical Care Critical Care patient: No - Discharge Referral Referred to [facility] Med P.C.: No
[2018-01-17] MEDS: ACETAMINOPHEN 325 MG TABLET (FP) PO PRN ×2 (12:50→21:54)
--- NOTE | 2018-01-17 15:32 | EKG ---
Test Reason : Blood Pressure : / mmHG Vent. Rate : 092 BPM Atrial Rate : 092 BPM P-R Int : 166 ms QRS Dur : 076 ms QT Int : 332 ms P-R-T Axes : 061 042 030 degrees QTc Int : 410 ms NORMAL SINUS RHYTHM NONSPECIFIC T WAVE ABNORMALITY ABNORMAL ECG NO PREVIOUS ECGS AVAILABLE Confirmed by JOY DENNIS, VALERIA ([id number]) on 01/17/2018 3:32:38 PM Referred By: [facility]ENDRA GIRON [facility] Confirmed By:VALERIA HAMILTON MD
--- NOTE | 2018-01-17 16:07 | PN ---
Progress Note (short form) - Note Progress Note: clinically improved less abdominal pain no fever today Vital Signs Period Temp Pulse Resp BP Sys/Chavarria Pulse Ox Last 24 Hr 98.7 F-100.8 F 95-110 18-18 101-119/57-72 99 cor-rrr lungs clear abd soft,RLQ pain to palpation ext no edema CBC, BMP 01/17/18 06:00 01/17/18 06:00 Microbiology 01/15/18 18:27 Urine - Urine Clean Catch Urine Culture - Final NO GROWTH OBTAINED 01/15/18 16:50 Blood - Peripheral Venous Blood Culture - Preliminary NO GROWTH OBTAINED AFTER 24 HOURS, INCUBATION TO CONTINUE FOR 4 DAYS. a/p TOA continue cefoxitin/doxycycline f/u cultures hiv testing- patient agrees chlamydia/gonorrhea NAAT pending gyne f/u Problem List - Problems (1) Tubo-ovarian abscess Code(s): N70.93 - SALPINGITIS AND OOPHORITIS, UNSPECIFIED
[2018-01-17] MEDS: MICONAZOLE NITRATE 2% VAGINAL CREAM 45 GM TUBE VG SCH (21:51)
--- NOTE | 2018-01-17 22:25 | PN ---
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 cx clean uterus and adenexa tender impression TOA , feeling better on antibiotics , does no appear toxic , wbc decreased , temp coming down plan cont iv antibiotics , tii afebrile for 48 hours and normal WBC , repeat TVS in 2 weeks
[2018-01-18] MEDS ORDERED: PT OWN MED DRAWER 7, Y5N ONE ×3 (00:52→21:19)
[2018-01-18] MEDS: CEFOXITIN SODIUM 2 GM in DEXTROSE 5%-WATER - 100 ML IVPB SCH ×4 (03:06→21:31)
[2018-01-18] MEDS ORDERED: MAG HYDROX/AL HYDROX/SIMETH 30 ML UNIT-DOSE CUP PO ONE (04:56)
[2018-01-18 07:14] LABS: BASO % 0.2 % (0-2.0); EOS % 2.2 % (0-4.5); HEMATOCRIT 33.6 % (32.4-45.2); HEMOGLOBIN 11.7 GM/dL (10.7-15.3); LYMPH % 15.7 % (8-40); MCH 35.1 pg (25.7-33.7); MCHC 34.8 g/dl (32.0-36.0); MEAN CELL VOLUME 100.8 fl (80-96); MEAN PLT VOLUME 8.7 fl (7.5-11.1); NEUT % 74.9 % (42.8-82.8); PLATELET COUNT 202 K/MM3 (134-434); RBC 3.33 M/mm3 (3.60-5.2); RDW 12.6 % (11.6-15.6); WHITE BLOOD COUNT 11.5 K/mm3 (4.0-10.0)
[2018-01-18 07:54] LABS: CHLORIDE 103 mmol/L (98-107); POTASSIUM 4.7 mmol/L (3.5-5.1); SODIUM 136 mmol/L (136-145)
[2018-01-18 08:04] LABS: ALBUMIN 3.3 g/dl (3.4-5.0); ALK PHOS 47 U/L (45-117); ANION GAP 7 (8-16); BILIRUBIN,TOTAL 0.5 mg/dL (0.2-1.0); BLOOD UREA NITROGEN 9 mg/dL (7-18); CALCIUM 8.7 mg/dL (8.5-10.1); CO2 26 mmol/L (21-32); CREATININE 0.8 mg/dL (0.55-1.02); GLUCOSE,RANDOM 93 mg/dL (74-106); MAGNESIUM 2.1 mg/dL (1.8-2.4); SGOT/AST 17 U/L (15-37); SGPT/ALT 23 U/L (12-78)
[2018-01-18] MEDS: DOXYCYCLINE HYCLATE 100 MG CAPSULE PO SCH ×2 (09:33→17:46)
[2018-01-18] MEDS: NAPH,MB-DB/K PH,MBDB POWDER PACKET PO SCH (09:33)
[2018-01-18] MEDS: FOLIC ACID 1 MG TABLET (FP) PO SCH (09:35)
[2018-01-18] MEDS: LACTOBACILLUS ACIDOPHILUS 1 TABLET PO SCH (09:36)
--- NOTE | 2018-01-18 12:09 | PN ---
Physical Exam: SUBJECTIVE: Patient seen and examined. Denies fever, chills. Has intermittent RUQ tenderness, feels a "popping" OBJECTIVE: Vital Signs Period Temp Pulse Resp BP Sys/Chavarria Pulse Ox Last 24 Hr 98.6 F-99.6 F 87-97 0-20 98-119/55-73 100 Pe Neuro: alert, awake, cn 2-12intact Pulm: CTAB CV: s1 s2 rrr no mrg Abd: s nt nd + bs : clearing, white vaginal discharge, no odor, no swelling, no clumping no tenderness Ext: no le edema Laboratory Results - last 24 hr 01/17/18 01/18/18 01/18/18 11:00 06:00 06:00 WBC 11.5 H RBC 3.33 L Hgb 11.7 Hct 33.6 MCV 100.8 H MCH 35.1 H MCHC 34.8 RDW 12.6 Plt Count 202 D MPV 8.7 Absolute Neuts (auto) 8.6 Neutrophils % 74.9 Lymphocytes % 15.7 Monocytes % 7.0 Eosinophils % 2.2 Basophils % 0.2 Nucleated RBC % 0 Sodium 136 Potassium 4.7 Chloride 103 Carbon Dioxide 26 Anion Gap 7 L BUN 9 Creatinine 0.8 Creat Clearance w eGFR > 60 Random Glucose 93 Calcium 8.7 Magnesium 2.1 Total Bilirubin 0.5 AST 17 ALT 23 Alkaline Phosphatase 47 Total Protein 7.0 Albumin 3.3 L Urine WBC (Auto) <1 Urine RBC (Auto) 1 Ur Epithelial Cells Rare Active Medications Generic Name Dose Route Start Last Admin Trade Name Yoq PRN Reason Stop Dose Admin Acetaminophen 325 mg 01/16/18 05:38 01/17/18 21:54 Tylenol - PO 325 mg Q4H PRN Administration FEVER Doxycycline Hyclate 100 mg 01/16/18 10:00 01/18/18 09:33 Vibramycin - PO 100 mg BID@1000,1800 STEVEN Administration Folic Acid 1 mg 01/16/18 14:30 01/18/18 09:35 Folic Acid - PO 1 mg DAILY STEVEN Administration Cefoxitin Sodium 2 gm/ 100 mls @ 200 mls/hr 01/16/18 15:00 01/18/18 09:33 Dextrose IVPB 200 mls/hr Q6H-IV STEVEN Administration Protocol Ketorolac Tromethamine 30 mg 01/15/18 23:59 Toradol Injection - IVPUSH 01/21/18 23:58 Q6H PRN PAIN LEVEL 6-10 Lactobacillus Acidophilus 1 tab 01/16/18 14:30 01/18/18 09:36 Bacid - PO 1 tab DAILY STEVEN Administration Miconazole Nitrate 1 applic 01/17/18 22:00 01/17/18 21:51 Monistat-7 Vaginal Cream - VG 01/23/18 22:01 1 applic HS STEVEN Administration Ondansetron HCl 4 mg 01/15/18 23:55 Zofran Injection IVPUSH Q6H PRN NAUSEA Potassium Phos/Sodium Phos 1 packet 01/16/18 14:30 01/18/18 09:33 Phos-Nak Packet - PO 1 packet BID STEVEN Administration Imaging: - CTAP: 4.4x4x4 cm convoluted tubular fluid structure seen within the right adnexa that may represent hydrosalpinx versus possible hydrophyosalpinx vs non specific complex cyst. Assessment: 22 year old female with pmhx childhood asthma, genital herpes and c- section (3y/o daughter) presented with acute onset of right upper quadrant and right periumbilical pain/discomfort with nausea and vomiting Plan: 1. Sepsis d/t TOA - Resolving - Continue ceftriaxone, doxycline - Monitor fever curve, wbc - Chlamydia/gonorrhea NAAT pending - Transvaginal US in 2 weeks as outpt 2. Macrocytic anemia - Check b12, folic acid, retic count Visit type - Emergency Visit Emergency Visit: Yes ED Registration Date: 01/15/18 Care time: The patient presented to the Emergency Department on the above date and was hospitalized for further evaluation of their emergent condition. - New Patient This patient is new to me today: Yes Date on this admission: 01/18/18 - Critical Care Critical Care patient: No
[2018-01-18] MEDS: ACETAMINOPHEN 325 MG TABLET (FP) PO PRN (12:43)
--- NOTE | 2018-01-18 12:55 | PN ---
Progress Note (short form) - Note Progress Note: clinically improved no abdominal pain today less fever today Vital Signs Period Temp Pulse Resp BP Sys/Chavarria Pulse Ox Last 24 Hr 98.6 F-99.6 F 87-97 0-20 98-119/55-73 100 cor-rrr llungs clear abd soft,nt ext no edema CBC, BMP 01/18/18 06:00 01/18/18 06:00 Microbiology 01/17/18 11:00 Urine - Urine Clean Catch Urine Culture - Final NO GROWTH OBTAINED 01/15/18 16:50 Blood - Peripheral Venous Blood Culture - Preliminary NO GROWTH OBTAINED AFTER 48 HOURS, INCUBATION TO CONTINUE FOR 3 DAYS. 01/15/18 18:27 Urine - Urine Clean Catch Urine Culture - Final NO GROWTH OBTAINED hiv negative a/p TOA cefoxitin/doxycycline day #2 chlamydia/gonorrhea NAAT pending gyne f/u noted if wbc becomes normal and she is afebrile can switch to po levaquin 500 po daily and flagyl 500 tid to complete 14 days-hopefully tomorrow transvag sono and further f/u per gynecology NO EXERCISING WHILE ON LEVAQUIN NO ETOH WHILE TAKING FLAGYL please call back if needed Problem List - Problems (1) Tubo-ovarian abscess Code(s): N70.93 - SALPINGITIS AND OOPHORITIS, UNSPECIFIED
[2018-01-18] MEDS: MICONAZOLE NITRATE 2% VAGINAL CREAM 45 GM TUBE VG SCH (21:31)
[2018-01-19] MEDS ORDERED: PT OWN MED DRAWER 7, Y5N ONE ×3 (00:34→09:37)
[2018-01-19] MEDS ORDERED: MAG HYDROX/AL HYDROX/SIMETH 30 ML UNIT-DOSE CUP PO ONE (02:55)
[2018-01-19] MEDS: CEFOXITIN SODIUM 2 GM in DEXTROSE 5%-WATER - 100 ML IVPB SCH ×2 (03:26→09:40)
[2018-01-19 07:14] LABS: BASO % 0.2 % (0-2.0); EOS % 3.9 % (0-4.5); HEMATOCRIT 34.8 % (32.4-45.2); HEMOGLOBIN 12.3 GM/dL (10.7-15.3); LYMPH % 23.2 % (8-40); MCH 35.3 pg (25.7-33.7); MCHC 35.4 g/dl (32.0-36.0); MEAN CELL VOLUME 99.6 fl (80-96); MEAN PLT VOLUME 8.5 fl (7.5-11.1); MONO % 10.5 % (3.8-10.2); NEUT % 62.2 % (42.8-82.8); PLATELET COUNT 231 K/MM3 (134-434); RBC 3.49 M/mm3 (3.60-5.2); RDW 12.2 % (11.6-15.6)
[2018-01-19 07:41] LABS: MAGNESIUM 2.3 mg/dL (1.8-2.4)
[2018-01-19] MEDS: DOXYCYCLINE HYCLATE 100 MG CAPSULE PO SCH (09:39)
[2018-01-19] MEDS: FOLIC ACID 1 MG TABLET (FP) PO SCH (09:39)
[2018-01-19] MEDS: LACTOBACILLUS ACIDOPHILUS 1 TABLET PO SCH (09:39)
[2018-01-19 09:57] VITALS: BP 106/67; PULSE 94; TEMP 98
== END 2018-01-19 14:49 | disposition home or self-care (01) | DRG 576 ==
LOC: JER 13:34 → JERBED 21:52 → J7W 01-16 02:27
PROVIDERS: ADMIT Internal Medicine; ATTEND Nurse Practitioner Acute Care
DX: A41.9 Sepsis, unspecified organism (principal); N73.0 Acute parametritis and pelvic cellulitis; E87.2 Acidosis; N39.0 Urinary tract infection, site not specified; N70.93 Salpingitis and oophoritis, unspecified; E83.42 Hypomagnesemia; E83.39 Other disorders of phosphorus metabolism; D50.9 Iron deficiency anemia, unspecified
CPT/HCPCS: 36415; 74177-TC; 76830-TC; 80048; 80053; 81003; 81015; 82607; 82746; 83605; 83690; 83735; 84100; 84703; 85025; 85027; 85044; 85610; 86850; 86900; 86901; 87040; 87086; 87389; 87491; 87591; 87661; 93005; 93010; 99284-25; J7030